=== PATIENT | male | born 1985 | race Caucasian/White ===

== ENCOUNTER 2023-12-05 11:10 | Emergency (ER) | payer OTHER ==
[2023-12-05] MEDS ORDERED: levETIRAcetam 500 MG (5 mL) VIAL ONE (11:17)
[2023-12-05] MEDS ORDERED: FENTANYL 2,000MCG/100-0.9%NACL 100 ML ONE ×2 (11:48→17:53)
[2023-12-05] MEDS ORDERED: Midazolam HCl 2 mg/2 ml Vial ONE (12:02)
[2023-12-05] MEDS ORDERED: Midazolam In 0.9 % NaCl/PF 100 ML ONE (12:04)
[2023-12-05 12:12] LABS: #Basophils 0.1 10x3/uL (0.0-0.2); #Monocytes 0.8 10x3/uL (0.0-1.1); #Neutrophils 11.3 10x3/uL (1.5-8.4); %Basophils 0.5 % (0.0-2.0); %Eosinophils 0.2 % (0.0-6.0); %Lymphocytes 20.1 % (18.0-47.0); %Monocytes 5.3 % (0.0-10.0); %Neutrophils 72.6 % (40.0-75.0); Hematocrit 49.8 % (38.8-50.0); Hemoglobin 15.9 g/dL (13.5-17.5); Mean Corpuscular HGB CONC 31.9 g/dL (32.0-36.0); Mean Corpuscular Hemoglobin 31.4 pg (27.0-33.0); Mean Corpuscular Volume 98.2 fl (81.2-95.1); Mean Platelet Volume 11.1 fl (7.4-10.4); Platelet Count 281 10x3/uL (150-450); RBC Distribution Width 12.5 % (11.5-14.5); Red Blood Cell (RBC) Count 5.07 10x6/uL (4.32-5.72); White Blood Cell (WBC) Count 15.6 10x3/uL (3.5-10.5)
[2023-12-05 12:14] LABS: INR-International Normal Ratio 1.1; PTT 28.5 sec (22.0-33.0); Prothrombin Time 11.5 sec (9.5-12.1)
[2023-12-05 12:34] LABS: Bilirubin Neg (Negative); Blood, Urine 25 (Negative); Clarity Clear (Clear); Glucose, Urine (Dipstick) 100 mg/dL (Negative); Ketone, Urine 5 mg/dL (Negative); Leukocyte Negative (Negative); Nitrite Negative (Negative); Protein, Urine (Dipstick) 15 mg/dl (Neg-Trace); Urobilinogen Normal mg/dL (Less than 2)
[2023-12-05 12:40] LABS: Acetaminophen Less than 10 mcg/mL (10.0-30.0); Alcohol Less than 10.0 mg/dL (Less than 10); Lipase 22 U/L (8-78); Magnesium 2.2 mg/dL (1.6-2.6); Salicylate Less than 8.0 mg/dL (15.0-30.0)
[2023-12-05 12:42] LABS: ALT (SGPT) 18 U/L (8-55); AST (SGOT) 19 U/L (5-34); Albumin 4.3 g/dL (3.5-5.0); Alkaline Phosphatase 75 U/L (40-110); Anion Gap 28 mmol/L (10-20); BUN (Urea Nitrogen) 12 mg/dL (8.9-20.6); Bilirubin, Total 0.4 mg/dL (0.2-1.2); Calc. Creatinine Clearance 0 mL/min (70-130); Calcium 8.2 mg/dL (7.8-10.44); Chloride 110 mmol/L (98-107); Estimated GFR 116; Globulin 2.6 g/dL (2.4-3.5); Glucose 163 mg/dL (70-105); Potassium 3.4 mmol/L (3.5-5.1); Protein, Total 6.9 g/dL (6.0-8.3); Sodium 143 mmol/L (136-145)
[2023-12-05 12:42] LABS: Amphetamine Not Detected (NotDetected); Barbiturates Screen Not Detected (NotDetected); Benzodiazepine Screen Not Detected (NotDetected); Cocaine Metabolite Screen Not Detected (NotDetected); Methadone Not Detected (NotDetected); Methamphetamine Not Detected (NotDetected); Opiate Screen Not Detected (NotDetected); Oxycodone Screen Not Detected (NotDetected); Phencyclidine (PCP) Not Detected (NotDetected); THC/Cannabinoid Screen Not Detected (NotDetected); Tricyclic Screen Not Detected (NotDetected)
[2023-12-05 12:44] LABS: Troponin I Less than 0.010 ng/mL (< 0.028)
[2023-12-05 12:45] LABS: Carbon Dioxide 8 mmol/L (22-29)
[2023-12-05] MEDS ORDERED: Vancomycin 1 GM VIAL ONE (12:49)
[2023-12-05 12:50] LABS: Actual Bicarbonate (HCO3v) 8.3 mEq/L (22-28); Analyzer IN Cardio CS ER; Calcium, Ionized (venous) 1.18 mmol/L (1.16-1.32); Chloride (VBG) 106 mmol/L (98-106); Hematocrit-VBG 49 % (42.0-52.0); Hemoglobin (Hb) 16.7 g/dL (13.2-17.3); Potassium (VBG) 3.56 mmol/L (3.70-5.30); Puncture Site Other Site; RapidComm Collect By CBN; Sodium 146 mmol/L (133-146)
[2023-12-05] MEDS ORDERED: Piperacillin/Tazobactam 4.5 GM VIAL ONE (12:50)
[2023-12-05] MEDS ORDERED: VANCOMYCIN 2 GRAM/400 ML BAG 2 GM in Premix 1 BAG IVPB SCH (13:00)
[2023-12-05 13:12] LABS: Influenza A by NAA Not Detected (NotDetected); Influenza B by NAA Not Detected (NotDetected); SARS-CoV-2 NAA Rapid Test Not Detected (NotDetected)
[2023-12-05 13:20] LABS: Bacteria/HPF 1+ HPF (None Seen); CAUTI Indications for Culture Alt mental st,lethar; RBC/HPF 0-3 HPF (0-3); Squamous Epithelial 0-3 HPF (0-3); Transitional Epithelial 0-3 HPF (None Seen); WBC/HPF 0-3 HPF (0-3)
[2023-12-05 13:22] LABS: Urine Culture Reflex No No
[2023-12-05 15:12] LABS: Critical Call Chem-Lactate ERS.CG1@1511; Lactic Acid 6.7 mmol/L (0.5-2.2)
[2023-12-05] MEDS ORDERED: Atropine Sulfate 1 mg/10 ml Syringe ONE (15:26)
== END 2023-12-05 18:29 | disposition short-term general hospital (02) ==
LOC: CSHERS 11:10 → EEVIPCON 11:10 → CSHERS 18:29
DX: G40.909 Epilepsy, unspecified, not intractable, without status epilepticus (principal); F11.10 Opioid abuse, uncomplicated; J69.0 Pneumonitis due to inhalation of food and vomit; E87.20 Acidosis, unspecified
CPT/HCPCS: 31500; 36415; 43753; 51702; 70450; 71045; 80053; 80306; 80307; 81001; 82805; 83605; 83690; 83735; 84146; 84443; 84484; 85025; 85610; 85730; 86140; 86850; 86900; 86901; 93005; 94002; 94760; 96361; 96365; 96366; 96367; J0461; J1953; J2250; J2543; J3370